=== PATIENT | female | born 1985 | race Caucasian/White ===

== ENCOUNTER 2018-07-06 19:19 | Emergency (ER) | payer MEDICAID, SELFPAY ==
[2018-07-06 19:20] VITALS: BP 162/94; PULSE 144; RESP 18; TEMP 36.6; O2SAT 100; BMI 39.4
[2018-07-06 19:43] VITALS: BP 154/85; BP 155/80; PULSE 130; PULSE 135; RESP 18; TEMP 36.4; O2SAT 96; O2SAT 98
[2018-07-06 20:32] VITALS: BP 155/70; PULSE 133; RESP 18; TEMP 36.6
--- NOTE | 2018-07-06 20:34 | RAD_ITS ---
STUDY: X-RAY CHEST REASON FOR EXAM: Female, 32 years old. Cough TECHNIQUE: PA and lateral views of the chest. COMPARISON: None. FINDINGS: The lungs are clear but mildly under expanded. There is no demonstrated pleural abnormality. Normal size heart. Normal mediastinum and jacobo. Normal visualized pulmonary arteries. Normal visualized aortic arch and descending thoracic aorta. Normal visualized thoracic spine. Normal visualized ribs, clavicles, and shoulders. There is no demonstrated abnormality of the visualized soft tissue structures of the upper abdomen. RAD/Chest PA and Lateral IMPRESSION: Mild hypoinflation. No airspace consolidation or pleural effusion. Electronically Signed: Handy Dunn MD at 20:50 EST , Service support ,
[2018-07-06 20:57] LABS: Anion Gap 9 (5-15); BUN 6 mg/dL (7-18); BUN/Creat Ratio 7.3 RATIO (10-20); Calcium,Total 9.9 mg/dL (8.5-10.1); Chloride 107 mmol/L (98-107); Creatinine, Serum 0.82 mg/dL (0.55-1.02); EST Glomerular Filtration Rate 84 mL/min (>60); Est Glom Filt Rate - Afr Amer 102 mL/min (>60); Estimated Creatinine Clearance 76.46 ml/min; Glucose 124 mg/dL (74-106); Potassium 3.9 mmol/L (3.5-5.1); Sodium Level 141 mmol/L (136-145)
[2018-07-06 21:09] LABS: Absolute Lymphocyte Count 1.85 X10^3/ul (0.83-4.51); Absolute Neutrophil Count 9.2 X10^3/uL (2.0-7.7); Basophil# 0.03 X10^3/uL; Basophil% 0.3 % (0-1); Eosinophil# 0.14 X10^3/uL; Eosinophils% 1.2 % (0-5); Hematocrit 39.2 % (37-47); Hemoglobin 12.5 g/dl (12.0-15.0); Lymphocyte # 1.85 X10^3/ul (4.0); Lymphocyte % 15.5 % (19-41); Mean Corp Hgb Conc 31.9 g/gl (32-36); Mean Corpuscular Hgb 26.9 pg (27.0-32.0); Mean Corpuscular Volume 84.3 fL (81-99); Mean Platelet Vol. 9.1 fl (6.2-12.0); Monocyte% 5.9 % (0-10); Neutrophil # 9.17 X10^3/uL (2.7-7.7); Neutrophil % 76.9 % (47-70); POSITIVE COUNT NO; POSITIVE DIFFERENTIAL NO; POSITIVE MORPHOLOGY NO; Platelet Count 282 K/mm3 (150-450); RBC Distribution Width CV 16.1 % (11.6-14.6); RBC Distribution Width SD 48.7 fl (35.1-43.9); Red Blood Count 4.65 M/mm3 (4.2-5.4); White Blood Count 11.9 K/mm3 (4.4-11.0)
[2018-07-06 21:17] LABS: Pregnancy, Serum, hCG Quali. NEGATIVE Negative (0-9 Nonpreg)
[2018-07-06 21:24] LABS: D-Dimer Quantitative (DVT/PE) 0.28 FEU/ug/m (0.27-0.49)
[2018-07-06 22:04] VITALS: BP 145/80; PULSE 125; RESP 15; RESP 16; TEMP 36.6; O2SAT 98
--- NOTE | 2018-07-06 22:20 | ED.DCSUM_ITS ---
- ER Visit Summary Date of Service: 07/06/18 Chief Complaint: Cough History of Present Illness: The patient is a 32 F who presents with cough that is been getting worse over the past 4 days. Patient states it has been constant for the past 4 days. Patient denies any sputum production. Patient denies any fevers or chills. Patient admits to a sore throat. Patient admits to occasional shortness of breath. Patient denies any nausea or vomiting. Patient denies any chest pain. Physical Examination: Vital signs are stable except for tachycardia of 144. Patient is afebrile. Patient is in no acute distress. Oral mucosa is pink and moist. Oropharynx is clear. Neck is supple. Trachea is midline. There is no JVD noted. Heart was regular and tachycardic. Lungs are clear and equal bilateral. There is good respiratory effort noted. Abdomen is soft. Bowel sounds are normal. There is no tenderness. There is no guarding noted. Cranial nerves II through XII are intact. There are no focal motor or sensory deficits noted. The remaining physical exam is within normal limits. Test Results: CBC shows slight leukocytosis of 11.9. Metabolic profile is within normal limits. D-dimer was normal at 0.28. Serum hCG was negative. Emergency Department Course and Treatment: Patient felt better on reevaluation. Patient's heart rate improved. Patient was given a prescription for Humibid DM. Patient was instructed to follow-up with her primary care physician in 5-7 days. Patient understood and was agreeable with the plan. All questions were answered. Disposition: Discharged home Impression: Viral bronchitis This note was generated with [employer] dictation software. It may contain incorrect words, spelling, and punctuation that were not noted in review of the chart prior to signing ED Disposition - Plan for ED Patient: Disposition: Home or Assisted Living Chief Complaint: Cough Diagnosis: Viral bronchitis Instructions: ED URI Viral Prescriptions: Guaifenesin/D-Methorphan Hb [Humibid Dm] 1 tab PO Q12H PRN #20 tab.sr.12h PRN Reason: Cough Referrals: Dov Lee MD [Primary Care Provider] -
[2018-07-06 22:53] VITALS: BP 135/70; PULSE 115; RESP 16; O2SAT 98
--- OUTSIDE RECORDS SUMMARY | 2018-10-09 12:27 | XMS RPT_ITS ---
:1985 Author Organization [facility] Care Team Providers Name Role Phone EVER GARCIA DO Admitting Unavailable EVER GARCIA DO Attending Unavailable HAROLDO LEE MD Referring Unavailable HAROLDO LEE MD Consulting Unavailable EVER GARCIA DO Primary Care Unavailable PROVIDER, UNKNOWN Consulting Unavailable PROVIDER, UNKNOWN Consulting Unavailable PROVIDER, UNKNOWN Consulting Unavailable Haroldo Lee Primary Care Unavailable Chad Stout Unavailable PROBLEMS PROBLEMS No Problem Records FoundPROCEDURES PROCEDURES No Procedure Records FoundRESULTS RESULTS EMERGENCY DEPARTMENT Observed: 07/06/2018 Status: F Source: RAVENNA SUMMARY 10:30 PM [facility] [place] [facility] Medical Records Department [address] [place] [address] Emergency Department Summary 07/06/18 2214 MR#: [id number] Acct: [id number] Name: SUSANA NELSON Rep #: [id number] : 1985 32 From: Chad Stout DO PCP: Haroldo Lee MD Status: REG ER - ER Visit Summary Date of Service: 07/06/18 Chief Complaint: Cough History of Present Illness: The patient is a 32 F who presents with cough that is been getting worse over the past 4 days. Patient states it has been constant for the past 4 days. Patient denies any sputum production. Patient denies any fevers or chills. Patient admits to a sore throat. Patient admits to occasional shortness of breath. Patient denies any nausea or vomiting. Patient denies any chest pain. Physical Examination: Vital signs are stable except for tachycardia of 144. Patient is afebrile. Patient is in no acute distress. Oral mucosa is pink and moist. Oropharynx is clear. Neck is supple. Trachea is midline. There is no JVD noted. Heart was regular and tachycardic. Lungs are clear and equal bilateral. There is good respiratory effort noted. Abdomen is soft. Bowel sounds are normal. There is no tenderness. There is no guarding noted. Cranial nerves II through XII are intact. There are no focal motor or sensory deficits noted. The remaining physical exam is within normal limits. Test Results: CBC shows slight leukocytosis of 11.9. Metabolic profile is within normal limits. D-dimer was normal at 0.28. Serum hCG was negative. Emergency Department Course and Treatment: Patient felt better on reevaluation. Patient's heart rate improved. Patient was given a prescription for Humibid DM. Patient was instructed to follow-up with her primary care physician in 5-7 days. Patient understood and was agreeable with the plan. All questions were answered. Disposition: Discharged home Impression: Viral bronchitis This note was generated with [employer] dictation software. It may contain incorrect words, spelling, and punctuation that were not noted in review of the chart prior to signing ED Disposition - Plan for ED Patient: Disposition: Home or Assisted Living Chief Complaint: Cough Diagnosis: Viral bronchitis Instructions: ED URI Viral Prescriptions: Guaifenesin/D-Methorphan Hb [Humibid Dm] 1 tab PO Q12H PRN #20 tab.sr.12h PRN Reason: Cough Referrals: Haroldo Lee MD [Primary Care Provider] - What to do if you have Problems For any increased pain, shortness of breath, bleeding, nausea or vomiting, chest pain, or any unexpected problems, contact your Primary Care Provider. Call [facility] ([phone]) or report to the closest Emergency Room. Call 911 if necessary. 07/06/18 7865 <Electronically signed by Chad Stout DO> Date Chad Stout DO Cosigner Signature (If Indicated): Date CC: Haroldo Lee MD BASIC METABOLIC Collected: 07/06/2018 Status: F Source: TASHA PROFILE (BMP) 8:35 PM [facility] [place] TYPE CODE TESTS RESULT OUT OF RANGE REFERENCE UNITS LAB L501.0100 74-106 mg/dL High GLU 124 Result Comment: Fasting Glucose result from 100 to 125 mg/dL suggests IMPAIRED HOMEOSTASIS per A.D.A. criteria. Please note revised GLUCOSE reference range effective 2017. LAB L501.1000 7-18 mg/dL Low BUN 6 LAB L501.1100 0.55-1.02 mg/dL Normal CREAT,SERUM 0.82 Result Comment: The validity of the calculated GFR AND GFRAA in patients over 70 years has not been determined. Clinical correlation is essential. LAB L501.1110 >60 mL/min Normal EST GFR 84 Result Comment: Non- GFR Calc LAB L501.1115 >60 mL/min Normal EST GFR - AA 102 Result Comment: GFR Calc LAB L501.1255 ml/min Normal Estimated CRCL 76.46 LAB L501.1300 10-20 RATIO Low BUN/CRE 7.3 LAB L501.2200 8.5-10 mg/dL Normal .1 CA 9.9 LAB L501.5300 136-14 mmol/L Normal 5 NA 141 LAB L501.5600 3.5-5. mmol/L Normal 1 K 3.9 LAB L501.5900 98-107 mmol/L Normal CL 107 LAB L501.6100 21.0-3 mmol/L Normal 2.0 CO2 25.0 LAB L501.6200 5-15 Normal GAP 9 Performed By: #### L500.2500 #### [facility] [address] [place], [place], [address] CBC W/DIFF, AUTOMATED Collected: 07/06/2018 Status: F Source: TASHA 8:35 PM [facility] [place] TYPE CODE TESTS RESULT OUT OF RANGE REFERENCE UNITS LAB L100.1000 4.4-11.0 K/mm3 High WBC 11.9 LAB L100.1200 4.2-5.4 M/mm3 Normal RBC 4.65 LAB L100.1300 12.0-15.0 g/dl Normal HGB 12.5 LAB L100.1400 37-47 % Normal HCT 39.2 LAB L100.1500 81-99 fL Normal MCV 84.3 LAB L100.1600 27.0-32.0 pg Low MCH 26.9 LAB L100.1700 32-36 g/gl Low MCHC 31.9 LAB L100.1810 11.6-14.6 % High RDW CV 16.1 LAB L100.1820 35.1-43.9 fl High RDW SD 48.7 LAB L100.1900 150-450 K/mm3 Normal PLT 282 LAB L100.2000 6.2-12.0 fl Normal MPV 9.1 LAB L100.2100 47-70 % High NEUT% 76.9 LAB L100.2200 19-41 % Low LY% 15.5 LAB L100.2300 0-10 % Normal MONO% 5.9 LAB L100.2400 0-5 % Normal EO% 1.2 LAB L100.2500 0-1 % Normal BASO% 0.3 LAB L100.2550 0.0-0.9 % Normal IM GRAN % 0.200 Result Comment: IG% - Immature Granulocytes (promyelocytes, myelocytes and metamyelocytes) > 1% indicates that a LEFT SHIFT is Present. LAB L100.2620 2.0-7.7 X10 3/uL High Absolute Neut 9.2 LAB L100.2720 0.83-4.51 X10 3/ul Normal Absolute Lymph 1.85 Performed By: #### L100.0100 #### [facility] [address] [place], [place], [id number] ,SERUM,HCG QUALI. Collected: Status: F Source: RAVENNA 07/06/2018 8:35 PM [facility] [place] TYPE CODE TESTS RESULT OUT OF REFERENCE UNITS RANGE LAB L700.7000 0-9 Nonpreg Negative Normal HCGSQUAL NEGATIVE LAB L700.6700 =>Qualitative mIU/mL Normal HCG Qual < 1 triggr Performed By: #### L700.6800 #### [facility] [address] [place], [place], [id number] D-DIMER QUANTITATIVE Collected: 07/06/2018 Status: F Source: RAVENNA (DVT/PE) 8:35 PM [facility] [place] TYPE CODE TESTS RESULT OUT OF RANGE REFERENCE UNITS LAB L300.8000 0.27-0.49 FEU/ug/m Normal D-DIMER 0.28 QUANT Result Comment: NORMAL D-Dimer level (<0.50) indicates no DVT or PE. Performed By: #### L300.8000 #### [facility] [address] [place], [address] CHEST PA AND LATERAL Observed: 07/06/2018 Status: F Source: RAVENNA 8:14 PM [facility] [place] [facility] Imaging Services [address] [place] [address] Chest PA and Lateral MR#: [id number] Acct: [id number] Name: SUSANA NELSON Rep #: [id number] : 1985 F 32 From: Handy Dunn MD PCP: Haroldo Lee MD Status: REG ER Study: Chest PA and Lateral Date of Exam: 07/06/18 Exam# [id number] Ordering Dr: Chad Stout DO STUDY: X-RAY CHEST REASON FOR EXAM: Female, 32 years old. Cough TECHNIQUE: PA and lateral views of the chest. COMPARISON: None. FINDINGS: The lungs are clear but mildly under expanded. There is no demonstrated pleural abnormality. Normal size heart. Normal mediastinum and jacobo. Normal visualized pulmonary arteries. Normal visualized aortic arch and descending thoracic aorta. Normal visualized thoracic spine. Normal visualized ribs, clavicles, and shoulders. There is no demonstrated abnormality of the visualized soft tissue structures of the upper abdomen. RAD/Chest PA and Lateral IMPRESSION: Mild hypoinflation. No airspace consolidation or pleural effusion. Electronically Signed: Handy Dunn MD at 20:50 EST , Service support , CC: Chad Stout DO; Haroldo Lee MD Client Relation Specialist: Signed EMERGENCY DEPARTMENT Observed: 10/02/2017 Status: F Source: [place] SUMMARY 7:53 AM [facility] [place] SUMMARY NAME NUMBER SEX AGE ADMIT DISC TYPE MED.RECORD# LESLIE Wisdom [id number] F 32 09/25/17 09/25/17 Marylu [id number] ROOM:ER-B DATE OF :1985 PHYSICIAN NO.:[id number] PHYSICIAN NAME:Ever Garcia D.O. PHYSICIAN:Jennifer Lee M.D. CHIEF COMPLAINT: Thoracic and lumbar back pain and bilateral knee pain. HISTORY OF PRESENT ILLNESS: This 32-year-old white female states that she was recently diagnosed with fibromyalgia. Yesterday, she went back to work. 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 She states that after working, though, she developed severe lower thoracic and diffuse lumbar back pain as well as bilateral knee pain. She states that she notes creaking of her knees when she bends them. She denies any history of arthritis. She denies any numbness, tingling, weakness, loss of bowel or bladder control, or focal neurologic complaints. PAST MEDICAL HISTORY: Fibromyalgia. PAST SURGICAL HISTORY: Denies. MEDICATIONS: Medication list includes amitriptyline for sleep. ALLERGIES: She is allergic to Sudafed, penicillin, Entex and Tylenol. SOCIAL HISTORY: She denies any use of tobacco or drugs. She does admit to rare use of alcohol. PHYSICAL EXAMINATION: Temperature is 97.9, pulse 128, respiratory rate 16, blood pressure 157/91, and pulse oximetry 97% on room air. General: The patient is alert, awake and oriented. She appears to be in no obvious acute distress. She is nontoxic and cooperative during evaluation. HEENT examination is unremarkable with moist mucous membranes. Neck is supple without meningismus. There is no midline tenderness, crepitus, or step-off appreciated. Heart is a regular rate and rhythm without murmurs, heaves, lifts or thrills. Lungs are essentially clear to auscultation bilaterally. Respirations are easy and symmetric without retractions or tachypnea. Abdomen is soft and benign without rebound, rigidity or guarding noted. Skin is warm, soft, dry and intact without rash. Evaluation of the patient's lower thoracic and lumbar spine reveals diffuse tenderness to palpation both in the midline and in the paraspinal muscles. There is no crepitus or step-off noted. Negative straight leg raise test bilaterally. Evaluation of the patient's lower extremities revealed distal pulses are +2/4 and present at the dorsalis pedis and tibialis. Capillary refill is less than two seconds. Light touch sensation is intact. There is no obvious deformity or swelling of the knees noted. There is noted to be squeaking of the patellar tendons with active range of motion with flexion. DIAGNOSTIC DATA: X-rays of both knees were performed. X-rays of the left knee were unremarkable. X-rays of the right knee revealed mild medial compartment joint space loss but no acute osseous abnormality per the radiologist. The patient was subsequently discharged home in stable and satisfactory condition. EMERGENCY DEPARTMENT COURSE AND TREATMENT: The patient was provided prescriptions for Ultram, ibuprofen, and Flexeril. She was given a work note and referred back to her primary care doctor for follow-up. She was discharged home in stable and satisfactory condition with family. DIAGNOSES: 1. Acute thoracic and lumbar spine strain. 2. Bilateral knee sprain. D: Ever Garcia DO TD: 10:32 JOB #: [id number] Electronically signed by: Ever Garcia D.O. 10/02/17 07:53 Transcribed by: bernard 09/26/2017 08:24 KNEE 2 VIEWS LT Observed: 09/25/2017 Status: F [facility] [place] [address] Patient: SUSANA NELSONDavid Phone#: : 1985 Age: 32 Gender: F Pt. Type: ER Account: [id number] Location: 052 Ordering: EVER GARCIA Exam Date: 09/25/2017/9:48 Family Phys: HAROLDO LEE Charge Code: [id number] Physician: Elk Order #: [id number] DLP Dose#: PROCEDURE: X-RAY KNEE LT 2 VIEWS COMPARISON: None. INDICATIONS: Pain FINDINGS: BONES: Normal. No significant arthropathy or acute abnormality. The joint space is maintained. No fracture or dislocation. SOFT TISSUES: Negative. No visible soft tissue swelling. EFFUSION: None visible. OTHER: Negative. CONCLUSION: Unremarkable left knee radiographs.. Dictated by: Barbara Mccrary MD on 09/25/2017 at 10:15 Approved by: Barbara Mccrary MD on 09/25/2017 at 10:15 KNEE 2 VIEWS RT Observed: 09/25/2017 Status: F Source: [facility] 10:04 AM [place] [address] Patient: SUSANA NELSON Phone#: : 1985 Age: 32 Gender: F Pt. Type: ER Account: [id number] Location: [facility] Ordering: EVER GARCIA Exam Date: 09/25/2017/9:51 Family Phys: HAROLDO LEE Charge Code: [id number] Physician: Elk Order #: [id number] DLP Dose#: PROCEDURE: X-RAY KNEE RT 2 VIEWS COMPARISON: None. INDICATIONS: Pain FINDINGS: BONES: Normal. No significant arthropathy or acute abnormality. No fracture or dislocation. Mild medial compartment joint space loss. SOFT TISSUES: Negative. No visible soft tissue swelling. EFFUSION: None visible. OTHER: Negative. CONCLUSION: 1. Mild medial compartment joint space loss. No acute osseous abnormality. Dictated by: Barbara Mccrary MD on 09/25/2017 at 10:16 Approved by: Barbaar Mccrary MD on 09/25/2017 at 10:16 ALLERGIES ALLERGIES DATE TYPE / CODE NAME / CODE REACTION SEVERITY SOURCE 07/06/2018 Drug Penicillins/D77229 Hives Unknown [place] Allergy/416 0476(RXNORM) Community 306596([facility] ED CT) Repository 07/06/2018 Drug acetaminophen/F006 Other Unknown [place] Allergy/416 515557(RXNORM) Community 849412([facility] ED CT) Repository Drug PENICILLINS Moderate [place] Allergy/416 (CLASS)/33061596(R (Severity [facility] 900080(SNOM XNORM) Modifier) Hospital ED CT) (Qualifier Repository Value) Drug SUDAFED 12 Moderate [place] Allergy/416 HOUR/02195945(RXNO (Severity [facility] 444340(SN RM) Modifier) Hospital ED CT) (Qualifier Repository Value) Drug TYLENOL/39415335(R Moderate [place] Allergy/416 XNORM) (Severity [facility] 212183(SNOM Modifier) Hospital ED CT) (Qualifier Repository Value) Drug ENTEX Moderate [place] Allergy/416 LQ/27852748(RXNORM ([facility] 663861([facility] ) Modifier) [facility] ED CT) (Qualifier Repository Value) ENCOUNTERS ENCOUNTERS ADMIT/DISCHARGE ACCOUNT ADMITTING ENCOUNTER LOCATION SOURCE NUMBER CLASS 07/06/2018/ [id number] Emergency Tasha Tasha 8 [facility] ing:ED Repository 09/25/2017/ [id number] RADHA, Emergency BuildinR Jamison [place] 8 EVER DO oom: ERBed: B [facility] Repository PAYERS PAYERS ENCOUNTER GUARANTOR PAYER SUBSCRIBER SOURCE 07/06/2018 SUSANA Wisdom Primary Insurance:[facility] SUSANA Lewisoster [id number] [facility] [address] Number: [id number] [address]Vvj: [phone] [id number] Repository [phone] () Date:[id number] [address]OV: 07/06/2018 Secondary NOT GIVENUNK [place] Insurance:SELF PAY [facility] Number: Effective Repository Date:2018-07-06 09/25/2017 SUSANA Wisdom Primary SUSANA Wisdom Jamison Pomerene HEIMERDOB: Insurance:[facility]: [facility] [id number] [facility] PLANO [id number] [address], Repository [id number]: Number: [place] [id number] (HP) Date:Plan Name:[id number]
== END 2018-07-06 22:56 | disposition home or self-care (01) ==
PROVIDERS: Emergency Provider Emergency Medicine; Family Provider Family Medicine; PCP Family Medicine
DX: J20.8 Acute bronchitis due to other specified organisms (principal); E66.9 Obesity, unspecified; J45.909 Unspecified asthma, uncomplicated
CPT/HCPCS: 71046; 80048; 84703; 85025; 85379; 99284; A4216